=== PATIENT | male | born 1965 | race African-American/Black ===

== ENCOUNTER 2018-12-04 22:36 | Emergency (ER) | payer OTHER ==
[~2018-12-04] VITALS: Ht 175.3 cm; Wt 70.3 kg
[2018-12-04 23:12] VITALS: BP 110/67
--- NOTE | 2018-12-04 23:13 | NUR ---
ER Nurse Note: Pt coming from home c/o cough for "few days". Pt stated painful cough, 10/10 pain with phlegm. At triage O2 91% RA. Pt hx of COPD and smoking. Pt a&ox4, VSS, no signs of distress. Cap refill less than 3 secs. Will continue to [facility].
[2018-12-04] MEDS ORDERED: ROBITUSSIN30 MG/5 ML PO (23:26)
--- NOTE | 2018-12-04 23:26 | Emergency Room Report ---
History of Present Illness General Chief Complaint: Upper Respiratory Illness Source: Patient Present Illness HPI This is a 53-year-old male with no past medical history. He presents with chief complaint of cough. He says been ongoing for a week. Is asking for cough syrup with codeine. No nausea no vomiting. No fever chills. Cough is nonproductive nature. Denies any other complaint. Patient History Past Medical History: see triage record, old chart reviewed Past Surgical History: none Pertinent Family History: none Social History: Denies: smoking Immunizations: other Reviewed Nursing Documentation: PMH: Agreed; PSxH: Agreed Nursing Documentation-PMH Past Medical History: No Stated History Review of Systems Eye: Denies: eye pain, blurred vision ENT: Denies: ear pain, nose congestion, throat swelling Respiratory: Reports: cough; Denies: shortness of breath Cardiovascular: Denies: chest pain, palpitations Gastrointestinal: Denies: abdominal pain, diarrhea, nausea, vomiting Musculoskeletal: Denies: back pain, joint pain Skin: Denies: rash Neurological: Denies: headache, numbness Endocrine: Denies: increased thirst, increased urine Hematologic/Lymphatic: Denies: easy bruising All Other Systems: negative except mentioned in HPI Physical Exam Vital Signs Date Time Temp Pulse Resp B/P (MAP) Pulse Ox O2 Delivery O2 Flow Rate FiO2 12/04/18 23:01 98.2 79 20 110/67 (81) 91 Room Air Vitals with hypoxia. Repeat is 98% on room air. Sp02 EP Interpretation: reviewed, normal General Appearance: well appearing, no apparent distress, alert Head: normocephalic, atraumatic Eyes: bilateral eye PERRL, bilateral eye EOMI ENT: hearing grossly normal, normal pharynx Neck: full range of motion, supple, no meningismus Respiratory: chest non-tender, lungs clear, normal breath sounds Cardiovascular #1: regular rate, rhythm, no murmur Gastrointestinal: normal bowel sounds, non tender, no mass, no organomegaly, no bruit, non-distended Musculoskeletal: back normal, gait/station normal, normal range of motion Psychiatric: mood/affect normal Medical Decision Making Diagnostic Impression: Primary Impression: Cough in adult ER Course Patient presents with a cough but he is not coughing here. Actually took several deep breaths without any problem. He passively asked for culture with codeine. I suspect drug-seeking behavior. Will discharge home. I see no evidence of ACS, PE, dissection or pneumonia to name a few. Last Vital Signs Date Time Temp Pulse Resp B/P (MAP) Pulse Ox O2 Delivery O2 Flow Rate FiO2 12/04/18 23:12 79 20 Room Air 12/04/18 23:12 98.2 110/67 91 Status: unchanged Disposition: HOME, SELF-CARE Condition: Stable Scripts Dextromethorphan Polistirex (Robitussin ER) 30 Mg/5 Ml Amada.er.12h 30 MG PO Q6HR, #120 ML Prov: Freddy Mohan MD 12/04/18 Additional Instructions: Follow-up with your doctor in 7 days. Return if symptoms worsen. Freddy Mohan MD Dec 04, 2018 23:26
[2018-12-04 23:30] VITALS: BP 110/67
--- NOTE | 2018-12-04 23:30 | NUR ---
ER Nurse Note: Pt seen, treated, medically cleared for discharge by ERMD. Discharge instuctions and prescriptions given with repeat verbalization by pt. Emphasized to follow up with primay care provider; take whole course of medication. All orders completed per ERMD orders. Pt a&ox4, VSS, no signs of distress. ID band removed. Pt left with all belongings, left with own transportation.
== END 2018-12-04 23:30 | disposition home or self-care (01) ==
LOC: EMR 23:27
DX: R05 Cough (principal)
CPT/HCPCS: 99282

== ENCOUNTER 2019-07-21 01:01 | Emergency (ER) | payer OTHER ==
[~2019-07-21] VITALS: Ht 170.2 cm; Wt 68.0 kg
[~2019-07-21 01:01] MED LIST: ROBITUSSIN30 MG/5 ML PO
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
[2019-07-21] MEDS ORDERED: Tetanus/Diptheria/Pertussis IM ONE (01:15)
[2019-07-21] MEDS ORDERED: Acetaminophen 500mg (ES) tab ORAL ONE (01:15)
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
[2019-07-21] MEDS ORDERED: AUGMENTIN 875-1 EAC1 ORAL (04:32)
[2019-07-21] MEDS ORDERED: IBUPROFEN600 MG ORAL (04:32)
[2019-07-21] MEDS ORDERED: ZYRTEC10 MG ORAL (04:32)
--- NOTE | 2019-07-21 04:50 | Diagnostic Imaging Report ---
INDICATION: Abdominal pain TECHNIQUE: Continuous helical transaxial imaging of the abdomen and pelvis was obtained from the lung bases to the pubic symphysis. No intravenous contrast was administered. Coronal 2-D reformats were also obtained. Automatic Exposure Control was utilized. Total Dose length Product (DLP): 174.[address] Dose Index Volume (CTDIvol): 3.3 mGy Comparison: none FINDINGS: Lungs: Scattered hyperlucent patches of the pulmonary destruction or centrilobular and paraseptal emphysema noted.. Liver: Unremarkable Gallbladder/biliary system: No gallstones are identified. There is no evidence of intrahepatic or extrahepatic biliary ductal dilatation. Spleen: Unremarkable Pancreas: Grossly unremarkable Kidneys/Bladder: No definite stone or hydronephrosis are identified. The urinary bladder is unremarkable.. Adrenal glands: Unremarkable Bowel: Unremarkable. Appendix is unremarkable. Aorta/IVC: Some calcification of aorta and iliac arteries noted consistent with atherosclerotic disease. Peritoneum: There is no free fluid. Bones: There is a moderate scoliosis of the thoracic and lumbar spine. There is narrowing of intervertebral discs and accompanying endplate osteophyte formation. Hypertrophied facet joints also demonstrated. IMPRESSION: No acute findings . Pulmonary emphysema Mild atherosclerotic vascular disease. Scoliosis Significantly limited evaluation due to the nonadministration of oral and IV contrast [facility] has communicated the preliminary results to the Emergency Department. Their findings are largely concordant with this report. The CT scanner at [facility] is accredited by the [employer] and the scans are performed using dose optimization techniques as appropriate to a performed exam including Automatic Exposure control.
[2019-07-21 06:15] VITALS: BP 104/62
[2019-07-21 06:29] VITALS: BP 110/71
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
== END 2019-07-21 06:35 | disposition home or self-care (01) ==
LOC: EMR 01:16
DX: S02.832A Fracture of medial orbital wall, left side, initial encounter for closed fracture (principal); S02.842A Fracture of lateral orbital wall, left side, initial encounter for closed fracture; W19.XXXA Unspecified fall, initial encounter; Y92.9 Unspecified place or not applicable; Z23 Encounter for immunization; Z59.0 Homelessness; J32.9 Chronic sinusitis, unspecified; J43.9 Emphysema, unspecified; M41.85 Other forms of scoliosis, thoracolumbar region
CPT/HCPCS: 70450; 70486; 74176; 90471; 90715; Z7502; 99284